=== PATIENT | male | born 1995 | race Caucasian/White ===

== ENCOUNTER → 2018-09-05 15:16 | Emergency (ER) | payer BC ==
--- NOTE | 2018-09-05 15:58 | ED ---
Headache - HPI Summary HPI Summary: Pt. is a 23 y.o male who presents to the ER for a headache. Pt. states that he has a hx of seasonal allergies and was coughing very hard a few days ago when he developed severe pain above his left eye. Pain last a few minutes and then resolved. Pt. states since he has been getting intermittent headaches above his left eye. No associated sxs of vision changes, numbness, tingling, weakness, N/V , fever, neck pain. Sxs are mild in severity. NO current modifying factors. Pt. currently denies h/a and is working on his computers. Otherwise no past medical hx. - History Of Current Complaint Chief Complaint: EDHeadache Stated Complaint: HEADACHE/DIZZINESS PER PT Time Seen by Provider: 09/05/18 15:26 Hx Obtained From: Patient - Allergies/Home Medications Allergies/Adverse Reactions: Allergies Allergy/AdvReac Type Severity Reaction Status Date / Time Penicillins Allergy Unknown Verified 09/05/18 15:22 Reaction Details pollen extracts Allergy Sneezing Verified 09/05/18 15:22 Tree Nuts Allergy Anaphylatic Verified 09/05/18 15:22 Shock Home Medications: Home Medications Fluticasone NASAL SPRAY 50MCG* [Flonase NASAL SPRAY 50MCG*] 2 spray BOTH NARES DAILY 09/05/18 [History Confirmed 09/05/18] PMH/Surg Hx/FS Hx/Imm Hx Previously Healthy: Yes Infectious Disease History: No Infectious Disease History: Denies: Traveled Outside the [place] in Last 30 Days - Family History Known Family History: Positive: Non-Contributory - Social History Occupation: Student Lives: Dormitory/Roommates Alcohol Use: Weekly Substance Use Type: Reports: Marijuana Smoking Status (MU): Current Some Day Smoker Review of Systems Constitutional: Negative Negative: Fever, Chills Eyes: Negative Negative: Photophobia, Blurred Vision, Diplopia Positive: Nasal Discharge Cardiovascular: Negative Negative: Palpitations, Chest Pain Positive: Cough. Negative: Shortness Of Breath Gastrointestinal: Negative Negative: Abdominal Pain, Vomiting, Diarrhea, Nausea Genitourinary: Negative Musculoskeletal: Negative Skin: Negative Positive: Headache. Negative: Weakness, Paresthesia, Numbness, Syncope, Slurred Speech All Other Systems Reviewed And Are Negative: Yes Physical Exam Triage Information Reviewed: Yes Vital Signs On Initial Exam: Initial Vitals Temp Pulse Resp BP Pulse Ox 99.0 F 66 18 151/76 98 09/05/18 15:19 09/05/18 15:19 09/05/18 15:19 09/05/18 15:19 09/05/18 15:19 Vital Signs Reviewed: Yes Appearance: Positive: Well-Appearing - Pt. sitting up in bed in NAD. Working on computer. Skin: Positive: Warm, Dry Head/Face: Positive: Normal Head/Face Inspection Eyes: Positive: Normal, EOMI, PAMELA, Conjunctiva Clear ENT: Positive: Pharynx normal, TMs normal Neck: Positive: Supple, Nontender. Negative: Nuchal Rigidity Respiratory/Lung Sounds: Positive: Clear to Auscultation, Breath Sounds Present Cardiovascular: Positive: Normal, RRR Musculoskeletal: Positive: Normal, Strength/ROM Intact Neurological: Positive: Normal, Alert, Oriented to Person Place, Time, CN Intact II-III, Heel to Toe - normal, Finger to Nose - normal, Facial Symmetry, Speech Normal. Negative: Pronator Drift Present Psychiatric: Positive: Affect/Mood Appropriate - Leighann Coma Scale Best Eye Response: 4 - Spontaneous Best Motor Response: 6 - Obeys Commands Best Verbal Response: 5 - Oriented Coma Scale Total: 15 Diagnostics - Vital Signs Vital Signs Temp Pulse Resp BP Pulse Ox 09/05/18 15:19 99.0 F 66 18 151/76 98 - Laboratory Lab Statement: Any lab studies that have been ordered have been reviewed, and results considered in the medical decision making process. Headache Course/Dx - Course Course Of Treatment: Pt. presenting for intermittent h/a x 3 days. No hx of h/ a. Neuro exam is unremarkable. Case discussed with Dr. Dunaway who recommends ct brain to r/o intracranial bleed, mass. CT read per radiology: IMPRESSION: NO ACUTE INTRACRANIAL PATHOLOGY. MILD SINUS MUCOSAL INFLAMMATORY DISEASE, WITH AN AIR-FLUID LEVEL IN THE LEFT MAXILLARY. SINUS. IN THE CORRECT CLINICAL SETTING, THIS MAY REPRESENT ACUTE SINUSITIS. CT brain as above. Pt. without sinus congestion. Advised tylenol or motrin for pain as directed. To f.u with [facility] if sxs persist. To return to ER if sxs change or worsen. - Diagnoses Differential Diagnosis/HQI/PQRI: Epidural Hematoma, Migraine, Sinus Headache, Tension Headache, Viral Syndrome Provider Diagnoses: Allergic rhinitis Discharge - Sign-Out/Discharge Documenting (check all that apply): Patient Departure Patient Received Moderate/Deep Sedation with Procedure: No - Discharge Plan Condition: Good Disposition: HOME Patient Education Materials: Allergic Rhinitis (ED), Acute Headache (ED) Referrals: [facility] @ [Outside] Additional Instructions: Schedule a follow up appointment with Health clinic if symptoms persist Tylenol or Motrin for pain as directed Continue allergy medication as directed Return to ER if symptoms change or worsen - Billing Disposition and Condition Condition: GOOD Disposition: Home
[2018-09-05 16:54] VITALS: BP 124/70
== END | disposition home or self-care (01) ==
LOC: ED 15:16
DX: J30.9 Allergic rhinitis, unspecified (principal); Z88.0 Allergy status to penicillin; Z72.0 Tobacco use
CPT/HCPCS: 70450; 99282